=== PATIENT | female | born 1975 | race Caucasian/White ===

== ENCOUNTER 2017-04-27 18:56 | Emergency (ER) | payer OTHER ==
[~2017-04-27] VITALS: Ht 162.6 cm; Wt 54.4 kg
[2017-04-27 19:02] VITALS: BP 130/76
[2017-04-27] MEDS ORDERED: CIPRO HC OTIC S10 ML OTIC (20:18)
== END 2017-04-27 20:30 | disposition home or self-care (01) ==
LOC: ER 18:56
DX: H60.91 Unspecified otitis externa, right ear (principal); J30.9 Allergic rhinitis, unspecified; J34.89 Other specified disorders of nose and nasal sinuses; F17.210 Nicotine dependence, cigarettes, uncomplicated; F10.99 Alcohol use, unspecified with unspecified alcohol-induced disorder; F12.10 Cannabis abuse, uncomplicated